=== PATIENT | female | born 1995 | race Caucasian/White ===

== ENCOUNTER 2016-07-13 19:35 | Emergency (ER) | payer SELFPAY ==
[~2016-07-13] VITALS: Ht 170.2 cm; Wt 68.0 kg
[~2016-07-13 19:35] MED LIST: AMOX500C2 PO; DIAZ5TAB PO
--- NOTE | 2016-07-13 19:58 | NUR ---
Patient discharged to home in stable conditon. Written and verbal after care instructions given. Patient verbalizes understanding of instructions. WALKED OUT OF ER WITH STEADY GAIT
== END 2016-07-13 19:59 | disposition home or self-care (01) ==
LOC: ER 19:37
DX: J40 Bronchitis, not specified as acute or chronic (principal); F10.20 Alcohol dependence, uncomplicated
CPT/HCPCS: A4663

== ENCOUNTER 2017-11-11 13:58 | Emergency (ER) | payer MEDICAID ==
[~2017-11-11] VITALS: Ht 170.2 cm; Wt 72.6 kg
[2017-11-11] MEDS ORDERED: IBUPROFEN 600 MG TABLET PO ONE (15:15)
[2017-11-11] MEDS ORDERED: IBUPROFEN 600 MG TABLET ONE (15:18)
--- NOTE | 2017-11-11 15:18 | NUR ---
Throat swab for Strep collected and sent to lab.
--- NOTE | 2017-11-11 15:50 | NUR ---
DR QUEZADA MADE PATIENT AWARE OF TEST REULTS. WILL BE DC HOME
--- NOTE | 2017-11-11 15:54 | NUR ---
Patient discharged to home in stable conditon. Written and verbal after care instructions given. Patient verbalizes understanding of instructions.
[2017-11-11 15:56] VITALS: BP 105/62
== END 2017-11-11 15:59 | disposition home or self-care (01) ==
LOC: ER 14:00
DX: J02.8 Acute pharyngitis due to other specified organisms (principal); B97.89 Other viral agents as the cause of diseases classified elsewhere
CPT/HCPCS: 36415; 86403; 87070; 99284; A4663